=== PATIENT | female | born 1980 | race Caucasian/White ===

== ENCOUNTER 2017-04-22 22:44 | Emergency (ER) | payer MEDICAID ==
--- NOTE | 2017-04-22 23:28 | ED Physician Chart ---
ED Chief Complaint/HPI - Patient Information Date Seen:: 04/22/17 Time Seen:: 23:10 Chief Complaint:: chest pain History of Present Illness:: 4 hours ago the patient developed pleuritic right-sided chest pain right-sided chest pain. Patient's had no recent upper respiratory tract infection, fever or cough. Allergies:: Allergies Allergy/AdvReac Type Severity Reaction Status Date / Time No Known Allergies Allergy Verified 04/22/17 22:55 Vitals:: Vital Signs - 8 hr 04/22/17 22:45 Temp 98.1 F HR 79 RR 18 BP 136/98 O2 Sat % 98 Historian:: Patient, Family Member Review:: Nurse's Note Reviewed ED Review of Systems - Review of Systems General/Constitutional: No fever, No chills Skin: No skin lesions, No bruising Head: No headache Eyes: No loss of vision ENT: No earache, No sore throat Neck: No neck pain, No swelling, No thyromegaly, No stiffness Cardio Vascular: Chest pain Pulmonary: No SOB, No cough, No sputum, No wheezing GI: No nausea, No vomiting, No diarrhea G/U: No dysuria Musculoskeletal: No bone or joint pain, No back pain, No muscle pain Endocrine: No polyuria, No polydipsia Psychiatric: No prior psych history Hematopoietic: No bruising Allergic/Immuno: No urticaria Neurological: No syncope, No headache ED Past Medical History - Past Medical History Past Medical History: No significant medical hx Family History: None Social History: Non Smoker, No Alcohol Surgical History: None Psychiatricy History: None Medication: None Family Medical History - Family Member Mother History Unknown: Yes Ethnicity: Non- ED Physical Exam - Physical Examination General/Constitutional: Well-developed, well-nourished, Alert, No distress Head: Atraumatic Eyes: Lids, conjuctiva normal, PERRL Skin: Nl inspection, No rash, No skin lesions, No ecchymosis, Well hydrated ENMT: External ears, nose nl, Lips, teeth, gums nl Neck: No nuchal rigidity Respiratory: Nl effort/Exclusion, Clear to Auscultation, No Wheeze/Rhonchi/Rales Other Respiratory comments:: Clear symmetrical breath sounds Cardio Vascular: RRR, No murmur, gallop, rubs, NL S1 S2 GI: No tenderness/rebounding/guarding, No organomegaly, No hernia, Normal BS's, Nondistended, No mass/bruits, No McBurney tenderness : No CVA tenderness Extremities: Normal digits & nails Neuro/Psych: Alert/oriented, No focal deficits Misc: Normal back ED Assessment - Assessment General Assessment: Patient's pain improved after the albuterol breathing treatment ED Septic Shock - . Is Septic Shock (SBP<90, OR Lactate>4 mmol\L) present?: No - <6hrs of presentation: Vital Signs: Vital Signs - 8 hr 04/22/17 22:45 Temp 98.1 F HR 79 RR 18 BP 136/98 O2 Sat % 98 ED Reassessment (Disposition) - Reassessment Reassessment Condition:: Improved - Diagnosis Diagnosis:: Atypical chest pain - Aftercare/Follow up Instructions Aftercare/Follow-Up Instructions:: Refer to Discharge Instructions - Patient Disposition Discharge/Transfer:: Home Condition at Disposition:: Stable, Improved
[2017-04-22] MEDS ORDERED: Albuterol Nebulizer 2.5mg/3mL HHN STA (23:30)
[2017-04-22] MEDS ORDERED: Albuterol Nebulizer 2.5mg/3mL HHN ONE (23:41)
== END 2017-04-23 00:25 | disposition home or self-care (01) ==
LOC: ER 22:44
DX: R07.89 Other chest pain (principal)
CPT/HCPCS: 93005; 94640; J7613; Z7502

== ENCOUNTER 2017-11-08 20:26 | Emergency (ER) | payer MEDICAID ==
[2017-11-08] MEDS ORDERED: Acetaminophen 500 MG TAB PO ONE (21:01)
[2017-11-08] MEDS ORDERED: Acetaminophen 500 MG TAB ONE (21:05)
[2017-11-08 21:19] LABS: % EOSINOPHILS 1.6 % (0.0-5.0); % LYMPHOCYTES 44.6 % (20.0-50.0); % MONOCYTES 7.8 % (2.0-10.0); EOSINOPHILE ABSOLUTE 0.2 Th/cmm (0.1-0.4); HEMATOCRIT 39.8 % (41.0-60); LYMPHOCYTE ABSOLUTE 4.6 Th/cmm (1.5-3.0); MEAN CELL VOLUME 74.5 fl (81-100); MEAN CORPUSCULAR HEMOGLOBIN 24.4 pg (27.0-31.0); MEAN CORPUSCULAR HGB CONC 32.8 pg (28.0-36.0); MEAN PLATELET VOLUME 8.3 fl; MONOCYTE ABSOLUTE 0.8 Th/cmm (0.3-1.0); NEUTROPHILE ABSOLUTE 4.7 Th/cmm (1.8-8.0); PLATELET COUNT 363 Th/cmm (150-400); RED BLOOD COUNT 5.34 Mil/cmm (3.80-5.10); RED CELL DISTRIBUTION WIDTH 13.8 % (11.5-20.0); WHITE BLOOD COUNT 10.3 Th/cmm (4.8-10.8)
[2017-11-08 21:29] LABS: AMPHETAMINE URINE NEGATIVE (NEGATIVE); BARBITURATES URINE NEGATIVE (NEGATIVE); BENZODIAZEPINES QUAL URINE NEGATIVE (NEGATIVE); CANNABINOID THC NEGATIVE (NEGATIVE); COCAINE METABOLITE QUAL URINE NEGATIVE (NEGATIVE); METHADONE URINE NEGATIVE (NEGATIVE); METHAMPHETAMINES QUAL URINE NEGATIVE (NEGATIVE); OPIATES (MORPHINE) QUAL. URINE NEGATIVE (NEGATIVE); PHENCYCLIDINE (PCP) URINE NEGATIVE (NEGATIVE); TRICYCLICS (TCA) QUAL. URINE NEGATIVE (NEGATIVE)
[2017-11-08 21:34] LABS: ALB/GLOB RATIO 1.2 (1.0-1.8); ALBUMIN 3.7 gm/dL (3.7-5.3); ALKALINE PHOSPHATASE 36 U/L (34-104); ANION GAP 11.9 (7.0-16.0); BILIRUBIN,TOTAL 0.4 mg/dL (0.3-1.0); BUN - UREA NITROGEN 8 mg/dL (7-25); CALCIUM SERUM 9.5 mg/dL (8.6-10.3); CARBON DIOXIDE 25.5 mEq/L (21.0-31.0); CHLORIDE 105 mEq/L (98-107); CHOLESTEROL 198 mg/dL (<200); CREATININE - SERUM 0.7 mg/dL (0.6-1.2); GFR AFRICAN-AMERICAN > 60.0 ml/min (>90); GFR NON AFRICAN-AMERICAN > 60.0 ml/min; GLUCOSE 86 mg/dL (70-105); HDL -HIGH DENSITY LIPOPROTEIN 37 mg/dL (23-92); POTASSIUM SERUM 4.4 mEq/L (3.5-5.1); SGOT 13 U/L (13-39); SGPT/ALT 12 U/L (7-52); SODIUM SERUM 138 mEq/L (136-145); TOTAL PROTEIN,SERUM 6.9 gm/dL (6.0-8.3); TRIGLYCERIDES 136 mg/dL (<150)
--- NOTE | 2017-11-08 22:37 | ER Physician Documentation ---
DATE OF SERVICE: EMERGENCY ROOM EVALUATION AND TREATMENT HISTORY OF PRESENT ILLNESS: This is a 37-year-old female patient who said that around 4:00 when she got up to go to the bathroom, suddenly she had severe headache in the occipital part of the headache and the entire head was hurting, but more in the occipital part of the head and it continued the whole day. She took the doctor's appointment at 3:00. She took 800 mg of Motrin to kill the pain, but the pain did not go away. She went and saw the doctor. The doctor gave her 5 mg of lisinopril and the patient was told to come to the Emergency Room. The patient did not take the medication. She came to the hospital. The patient's past medical history is negative for hypertension. She denied taking any narcotics weeds, marijuana, or any other drugs. Her drug screen was ordered to see if there is anything positive in the drug. Urine test has been ordered, I think it was negative, if not we can look at it again to see. The patient's blood pressure ever since that 3-4 times has been taken. It is always above around and blood pressure is 145 is the lowest systolic blood pressure. The patient never had hypertension in her life according to her. Her parents never had hypertension. She does not know much about the parents, her mother and father, because they live in [place] and she lives here. She did not take any medication else other than 800 mg of Motrin. Review of current illnesses is that the patient got sudden headache and she did not blow up any balloon or did not have any head injury. There is no evidence of any meningeal signs, Kernig's signs or Brudzinski sign. There are no meningeal signs. Straight leg raising test is negative and there is no nuchal rigidity. There is no evidence of any tumor type of thing. There is no seizure. There are no tremors. PAST MEDICAL HISTORY: Benign and negative. PERSONAL HISTORY: , 3 children. ALLERGIES: None known. REVIEW OF SYSTEMS: GENERAL: Twelve-point review of system, she is awake, alert. CONSTITUTIONAL: Negative. No fever, no chills, no rigors. Does not take any drugs. CARDIAC: No history of any chest pain. No history of any myocardial infarction, rheumatic fever, valvular heart disease, pericardial disease, cardiomyopathy. LUNGS GAO: Clear. She does not have any pneumonia or TB pulmonary embolism, COPD, emphysema, bronchitis. GI GAO: No history of diarrhea, constipation, or vomiting. ENDOCRINE GAO: No history of diabetes mellitus, hypo or hyperthyroidism. Bones and joints, no apparent complaints. A 12-point review of systems otherwise is benign and negative. She does not take any medication. Today, only for the first time she took 800 mg of Motrin and it surprising that for the first time without knowing about the medications she is taking 800 mg of Motrin that suggests that it is very possible that she might have taken Motrin or some other drugs that might thinned up the blood or antiplatelet medications and might have bled in the brain, but she does not look like she is a severe sick patient. She looks calm. She looks comfortable. PHYSICAL EXAMINATION: GENERAL: The patient appears to be awake, alert, oriented. General examination is otherwise benign and negative. Meningeal signs as negative. No edema, no cyanosis, no petechia, no ecchymosis. CHEST: Clear. Trachea being central. Fairly good air entry in both lungs. HEART: Reveals normal heart sounds. Soft fourth heart sound. Second heart sound is physiologically split. Third heart sound is absent. Fourth heart sound is soft, distant, benign, negative. No abnormal murmur, no abnormal systolic, no abnormal diastolic, no evidence of any pericardial rub. No evidence of any systolic murmur of aortic stenosis. No evidence of any fevers, chills or rigors. No evidence of any sepsis or septicemia, etc. present. Urine appeared to be clear, but it sent for urine examinations. Urine for drug screen has been ordered by me. The patient is ordered to get lisinopril 10 mg, metoprolol 50 mg, Zofran 4 mg by mouth and Tylenol 1 gram by mouth right now. The patient surgical gao had 3 surgeries, 3 C-sections and she does not know why 3 C-sections were done. She was told to take 3 , she went ahead and had 3 babies with 3 C-sections, 2 girls and one son. CLINICAL IMPRESSION: The patient had sudden onset of headache. She does not look like having ruptured aneurysm, but one thing we need to rule out is ruptured mendes aneurysm. I do not think so, but we will rule it out. Intracranial hemorrhage and any other possibilities, we will rule it out. So, CT scan will be done to rule out if there is anything suddenly happen to her. It is possible that she may not be telling us the truth that she is taking Motrin on a regular basis and that can cause a bleeding problem and cause platelet dysfunction and may cause intracranial bleeding also; GI bleeding also is a very possibility. Doctor gave her 5 mg of lisinopril that they did not take it. The patient's pain is 10/10, but looking at her, it does not even look like 3/10 because she does not have that kind of pain. Vital signs taken by the triage nurse shows temperature to be 98.2, pulse of 82, respirations 18, blood pressure 141/98, then it became 145/95 and then 143/90 or so in that level, 99% oxygen saturation, height of 154 cm, weight 162 pounds. She is mildly overweight. Last menstrual period is going on now. x 3 and she does not take any drugs or other medications. So, the plan is to get a CT scan of the brain done and it is possible that the patient may be hypertensive for a long time, but she says she has never been hypertensive, so I am not sure what is the cause. It could be some things that she ate or some injury to the head or it is just a simple migraine to start with can give rise to this kind of symptoms. So as long as the CT scan is normal, we can just give her Tylenol and Motrin etc. as needed. JOB# [id number]
--- NOTE | 2017-11-08 22:47 | Transfer Summary ---
DATE OF TRANSFER: 11/08/2017 ADDENDUM AND FINAL DISCHARGE REPORT Full code patient. A 37-year-old female. LABORATORY DATA: WBC 10.3, hemoglobin 13, hematocrit 39.8, differential is normal. Electrolytes are all within normal limits. BUN is 8, creatinine is 0.7 and glucose is 86. The patient's LDL level is very high at 147. Ideally it should be less than 90 and less than 70 is preferable and she should not eat too much of red meat and all kinds of pork and beef she is eating. She should cut back on the portions, cut back on high cholesterol and fat containing food and advice from a dietitian may be more helpful to her. The patient's CT scan has come to be negative. She finally acknowledged that she is taking for past 3 years, nonsteroidal anti-inflammatory medication. It is possible that she may be hypertensive for the past 3 years and the patient is discharged today with Lipitor 20 mg at bedtime and she needs to take Lopressor 50 mg p.o. morning. She should not take any nonsteroidal anti-inflammatory drugs like Aleve, Motrin, Toradol, Ultram or any other nonsteroidal anti-inflammatory drugs like diclofenac etc. The patient should cut back on portions of the cholesterol or cholesterol containing compounds. All instructions were given to the patient. FINAL DIAGNOSES: 1. Headache. 2. Hyperlipidemia. 3. The patient has may be mild gastritis secondary to using Motrin and she has been using it for the past 3 years. 4. Slightly overweight situation and all these things advised for this were all given to the patient and the patient will not take Motrin and not use any other drugs. JOB# [id number]
--- NOTE | 2017-11-09 07:27 | Diagnostic Imaging Report ---
CT scan of the brain without contrast History: Headache Total DLP equals 497 CTDI equals 30.3 Axial sections were obtained from the base of the skull to the vertex. There is a normal ventricular system size. No focal parenchymal lesions are seen. No evidence of any mass effect or shift of midline structures. No extra-axial masses or abnormal fluid collections. Impression: Negative examination
== END 2017-11-08 22:05 | disposition home or self-care (01) ==
LOC: ER 20:26
DX: R51 Headache (principal)
CPT/HCPCS: 99285; 70450; 36415; 80307; 86141; 85025; 81025; 80053; 80061; Q0162; Z7610

== ENCOUNTER 2018-12-20 22:27 | Emergency (ER) | payer MEDICAID ==
--- NOTE | 2018-12-20 22:49 | ED Physician Chart ---
ED Chief Complaint/HPI - Patient Information Date Seen:: 12/20/18 Time Seen:: 22:44 Chief Complaint:: Left ear pain History of Present Illness:: 38 yo female had left ear pain, left facial and left upper neck pain for 1 week. Pt noticed some blood in the left ear last week. Pt denied hearing loss or fever. Pt saw her PMD who prescribed Keflex 500 mg q6h for 7 days. Pt finished the antibiotics and still had significant left ear pain. Pt also felt headache and dizziness. Allergies:: Allergies Allergy/AdvReac Type Severity Reaction Status Date / Time No Known Allergies Allergy Verified 12/20/18 22:36 Vitals:: Vital Signs - 8 hr 12/20/18 22:30 Temp 99.0 F HR 77 RR 18 BP 127/83 O2 Sat % 99 ED Review of Systems - Review of Systems General/Constitutional: No fever, No chills Skin: No rash Head: Headache Eyes: No pain ENT: No nasal drainage Neck: Neck pain Cardio Vascular: No chest pain Pulmonary: No SOB GI: No nausea, No vomiting G/U: No dysuria Musculoskeletal: No bone or joint pain Neurological: No focal symptoms ED Past Medical History - Past Medical History Past Medical History: No significant medical hx Social History: Non Smoker, No Alcohol, No Drug Use Surgical History: (x 3, ) Family Medical History - Family Member Mother History Unknown: Yes Ethnicity: Non- ED Assessment - Assessment General Assessment: Otitis media, failed antibiotics, Keflex Assessment/Comments:: Rocephin 1g IM x 1 D/c home Augmentin 875/125 mg PO q12h x 10 days ED Septic Shock - . Is Septic Shock (SBP<90, OR Lactate>4 mmol\L) present?: No - <6hrs of presentation: Vital Signs: Vital Signs - 8 hr 12/20/18 22:30 Temp 99.0 F HR 77 RR 18 BP 127/83 O2 Sat % 99 ED Reassessment (Disposition) - Reassessment Reassessment Condition:: Improved - Aftercare/Follow up Instructions Notes:: F/u PCP and ENT, or return to ER if symptoms worsen. Medication Prescribed:: Augmentin 875/125 mg PO bid x 10 days - Patient Disposition Discharge/Transfer:: Home
== END 2018-12-20 23:39 | disposition home or self-care (01) ==
LOC: ER 22:27
DX: H66.92 Otitis media, unspecified, left ear (principal); M54.2 Cervicalgia; Z98.890 Other specified postprocedural states
CPT/HCPCS: 99283; 96372; J0696; Z7502

== ENCOUNTER 2019-03-21 22:31 | Emergency (ER) | payer MEDICAID ==
--- NOTE | 2019-03-21 22:51 | ED Physician Chart ---
ED Chief Complaint/HPI - Patient Information Date Seen:: 03/21/19 Time Seen:: 22:50 Chief Complaint:: Abdominal pain History of Present Illness:: 38 yo female developed sudden onset of abdominal pain 3 hours ago after eating cheese sandwich. The pain was located in the epigastric region radiating to the back, constant, 04/20. Pt also noticed rashes at upper chest. Pt had a large emesis of food content in the ER. Allergies:: Allergies Allergy/AdvReac Type Severity Reaction Status Date / Time No Known Allergies Allergy Verified 12/20/18 22:36 Vitals:: Vital Signs - 8 hr 03/21/19 22:42 Temp 98.6 F HR 95 RR 17 BP 169/111 O2 Sat % 100 ED Review of Systems - Review of Systems General/Constitutional: No fever, No chills Skin: No rash Head: Headache Eyes: No pain ENT: No nasal drainage Neck: No neck pain Cardio Vascular: No chest pain Pulmonary: No SOB GI: Nausea, Vomiting, Pain Musculoskeletal: No bone or joint pain Psychiatric: No prior psych history Neurological: No focal symptoms ED Past Medical History - Past Medical History Past Medical History: HTN Social History: Non Smoker, No Alcohol, No Drug Use Surgical History: (x 3) Family Medical History - Family Member Mother History Unknown: Yes Ethnicity: Non- ED Physical Exam - Physical Examination General/Constitutional: Awake, Alert Head: Atraumatic Eyes: PERRL, EOMI Other Skin comments:: Rashes in the upper chest ENMT: Nasal exam nl Neck: No nuchal rigidity Respiratory: No Wheeze/Rhonchi/Rales Cardio Vascular: RRR, No murmur, gallop, rubs, NL S1 S2 Other GI comments:: Epigastric and RUQ tenderness Extremities: normal strength in all extremities Neuro/Psych: Alert/oriented, No focal deficits ED Labs/Radiology/EKG Results - Lab Results Results: Laboratory Last Values WBC 10.9 Th/cmm (4.8-10.8) H 03/21/19 23:10 RBC 5.51 Mil/cmm (3.80-5.10) H 03/21/19 23:10 Hgb 14.2 gm/dL (12-16) 03/21/19 23:10 Hct 43.8 % (41.0-60) 03/21/19 23:10 MCV 79.4 fl (81-100) L 03/21/19 23:10 MCH 25.8 pg (27.0-31.0) L 03/21/19 23:10 MCHC Differential 32.4 pg (28.0-36.0) 03/21/19 23:10 RDW 14.0 % (11.5-20.0) 03/21/19 23:10 Plt Count 333 Th/cmm (150-400) 03/21/19 23:10 MPV 8.3 fl 03/21/19 23:10 Neutrophils % 35.2 % (40.0-80.0) L 03/21/19 23:10 Lymphocytes % 54.3 % (20.0-50.0) H 03/21/19 23:10 Monocytes % 7.9 % (2.0-10.0) 03/21/19 23:10 Eosinophils % 2.6 % (0.0-5.0) 03/21/19 23:10 Basophils % 0.0 % (0.0-2.0) 03/21/19 23:10 PT 9.9 SECONDS (9.5-11.5) 03/21/19 23:10 INR 0.95 (0.5-1.4) 03/21/19 23:10 PTT (Actin FS) 26.0 SECONDS (26.0-38.0) 03/21/19 23:10 Sodium 137 mEq/L (136-145) 03/21/19 23:10 Potassium 4.3 mEq/L (3.5-5.1) 03/21/19 23:10 Chloride 102 mEq/L (98-107) 03/21/19 23:10 Carbon Dioxide 27.6 mEq/L (21.0-31.0) 03/21/19 23:10 Anion Gap 11.7 (7.0-16.0) 03/21/19 23:10 BUN 17 mg/dL (7-25) 03/21/19 23:10 Creatinine 0.7 mg/dL (0.6-1.2) 03/21/19 23:10 Est GFR ( Amer) > 60.0 ml/min (>90) 03/21/19 23:10 Est GFR (Non-Af Amer) > 60.0 ml/min 03/21/19 23:10 BUN/Creatinine Ratio 24.3 03/21/19 23:10 Glucose 93 mg/dL (70-105) 03/21/19 23:10 Calcium 9.7 mg/dL (8.6-10.3) 03/21/19 23:10 Total Bilirubin 0.4 mg/dL (0.3-1.0) 03/21/19 23:10 AST 13 U/L (13-39) 03/21/19 23:10 ALT 11 U/L (7-52) 03/21/19 23:10 Alkaline Phosphatase 50 U/L (34-104) 03/21/19 23:10 Total Protein 7.3 gm/dL (6.0-8.3) 03/21/19 23:10 Albumin 4.3 gm/dL (3.7-5.3) 03/21/19 23:10 Globulin 3.0 gm/dL 03/21/19 23:10 Albumin/Globulin Ratio 1.4 (1.0-1.8) 03/21/19 23:10 Amylase 87 U/L (29-103) 03/21/19 23:10 Lipase 61 U/L (11-82) 03/21/19 23:10 Urine Source MIDSTREAM 03/22/19 00:10 Urine Color YELLOW 03/22/19 00:10 Urine Clarity HAZY (CLEAR) 03/22/19 00:10 Urine pH 6.5 (4.6 - 8.0) 03/22/19 00:10 Ur Specific [place] 1.020 (1.005-1.030) 03/22/19 00:10 Urine Protein TRACE mg/dL (NEGATIVE) 03/22/19 00:10 Urine Glucose (UA) NEGATIVE mg/dL (NEGATIVE) 03/22/19 00:10 Urine Ketones NEGATIVE mg/dL (NEGATIVE) 03/22/19 00:10 Urine Blood LARGE (NEGATIVE) H 03/22/19 00:10 Urine Nitrate NEGATIVE (NEGATIVE) 03/22/19 00:10 Urine Bilirubin NEGATIVE (NEGATIVE) 03/22/19 00:10 Urine Urobilinogen 0.2 E.U./dL (0.2 - 1.0) 03/22/19 00:10 Ur Leukocyte Esterase LARGE (NEGATIVE) H 03/22/19 00:10 Urine RBC 5-10 /hpf (0-5) H 03/22/19 00:10 Urine WBC 10-25 /hpf (0-5) H 03/22/19 00:10 Ur Epithelial Cells RARE /lpf (FEW) 03/22/19 00:10 Urine Bacteria OCCASIONAL /hpf (NONE SEEN) 03/22/19 00:10 Urine Test NEGATIVE 03/22/19 00:10 - Radiology Results Results: CT abdomen/pelvis: Gall stones. One calcified stone near the gallbladder neck or cystic duct. Mild gallbladder wall thickening and minimal surrounding stranding. Correlate for cholecystitis. Small hiatal hernia. Markedly enlarged lower uterine segment/cervical region/mass up to 7cm. ED Assessment - Assessment General Assessment: Acute abdominal pain Acute cholecystitis Urinary tract infection Leukocytosis Small hiatal hernia Uterine mass Assessment/Comments:: CBC, CMP, lipase, amylase, PT/PTT, UA, urine hCG CT abdomen/pelvis wo contrast Pantoprazole IV Zofran IV Morphine IV (pt refused) Tylenol PO Zosyn IV NS 1L IV bolus ED Septic Shock - . Is Septic Shock (SBP<90, OR Lactate>4 mmol\L) present?: No - <6hrs of presentation: Vital Signs: Vital Signs - 8 hr 03/21/19 22:42 Temp 98.6 F HR 95 RR 17 BP 169/111 O2 Sat % 100 ED Reassessment (Disposition) - Reassessment Reassessment:: Pt left AMA without waiting for CT abdomen/pelvis result Reassessment Condition:: Improved - Patient Disposition Discharge/Transfer:: Against Medical Advice
[2019-03-21 23:20] LABS: % EOSINOPHILS 2.6 % (0.0-5.0); % LYMPHOCYTES 54.3 % (20.0-50.0); % MONOCYTES 7.9 % (2.0-10.0); % NEUTROPHILS 35.2 % (40.0-80.0); EOSINOPHILE ABSOLUTE 0.3 Th/cmm (0.1-0.4); HEMATOCRIT 43.8 % (41.0-60); HEMOGLOBIN 14.2 gm/dL (12-16); LYMPHOCYTE ABSOLUTE 5.9 Th/cmm (1.5-3.0); MEAN CELL VOLUME 79.4 fl (81-100); MEAN CORPUSCULAR HEMOGLOBIN 25.8 pg (27.0-31.0); MEAN CORPUSCULAR HGB CONC 32.4 pg (28.0-36.0); MONOCYTE ABSOLUTE 0.9 Th/cmm (0.3-1.0); NEUTROPHILE ABSOLUTE 3.8 Th/cmm (1.8-8.0); PLATELET COUNT 333 Th/cmm (150-400); RED BLOOD COUNT 5.51 Mil/cmm (3.80-5.10); WHITE BLOOD COUNT 10.9 Th/cmm (4.8-10.8)
[2019-03-21 23:29] LABS: INR 0.95 (0.5-1.4)
[2019-03-21 23:34] LABS: ALB/GLOB RATIO 1.4 (1.0-1.8); ALBUMIN 4.3 gm/dL (3.7-5.3); ALKALINE PHOSPHATASE 50 U/L (34-104); AMYLASE SERUM 87 U/L (29-103); ANION GAP 11.7 (7.0-16.0); BILIRUBIN,TOTAL 0.4 mg/dL (0.3-1.0); BUN - UREA NITROGEN 17 mg/dL (7-25); CALCIUM SERUM 9.7 mg/dL (8.6-10.3); CARBON DIOXIDE 27.6 mEq/L (21.0-31.0); CHLORIDE 102 mEq/L (98-107); CREATININE - SERUM 0.7 mg/dL (0.6-1.2); GFR AFRICAN-AMERICAN > 60.0 ml/min (>90); GFR NON AFRICAN-AMERICAN > 60.0 ml/min; GLUCOSE 93 mg/dL (70-105); LIPASE 61 U/L (11-82); POTASSIUM SERUM 4.3 mEq/L (3.5-5.1); SGOT 13 U/L (13-39); SGPT/ALT 11 U/L (7-52); SODIUM SERUM 137 mEq/L (136-145); TOTAL PROTEIN,SERUM 7.3 gm/dL (6.0-8.3)
[2019-03-21] MEDS ORDERED: Morphine Sulfate 2 mg/mL 1mL Syr ONE (23:37)
[2019-03-21] MEDS ORDERED: Morphine Sulfate 2 mg/mL 1mL Syr IV STA (23:40)
[2019-03-21] MEDS ORDERED: Sodium Chloride 0.9% 1,000 ML IV ONE (23:50)
[2019-03-21] MEDS ORDERED: Piperacillin Sodium/Tazobact 3.375 gm Vial IV ONE (23:59)
[2019-03-22 00:33] LABS: URINE SOURCE MIDSTREAM
[2019-03-22 00:34] LABS: URINE BILIRUBIN NEGATIVE (NEGATIVE); URINE BLOOD LARGE (NEGATIVE); URINE GLUCOSE (UA) NEGATIVE (NEGATIVE); URINE KETONE NEGATIVE (NEGATIVE); URINE LEUKOCYTE ESTERASE LARGE (NEGATIVE); URINE MICROSCOPIC INDICATED? YES; URINE NITRATE NEGATIVE (NEGATIVE); URINE PH 6.5 (4.6 - 8.0); URINE PROTEIN TRACE mg/dL (NEGATIVE); URINE UROBILINOGEN 0.2 E.U./dL (0.2 - 1.0)
[2019-03-22 00:38] LABS: URINE COLOR YELLOW
[2019-03-22 00:46] LABS: URINE CLARITY HAZY (CLEAR)
[2019-03-22 01:01] LABS: URINE EPITHELIAL CELLS RARE /lpf (FEW)
[2019-03-22 01:02] LABS: URINE BACTERIA OCCASIONAL /hpf (NONE SEEN)
--- NOTE | 2019-03-22 09:36 | Diagnostic Imaging Report ---
CT abdomen and pelvis without intravenous contrast Indication: Abdominal pain Comparison: None, Technique: Axial images were obtained from the lung bases to the bilateral proximal femurs without IV contrast. Coronal reconstructions were made. total DLP: 465, CTDI9.7 FINDINGS: Hypoventilatory and atelectatic changes of the lung bases are noted. Evaluation of solid organs is limited due to lack of IV contrast. No evidence of focal hepatic lesions. Distended gallbladder is noted with gallstones. There is a 5 mm stone the region near the gallbladder neck or less likely cystic duct region. No focal splenic lesions. 1mm microcalcification the body the pancreas is noted likely due to old inflammatory process. No focal Adrenal lesions. No hydronephrosis or nephrolithiasis. Minimal bladder wall thickening is noted. There is a large lower uterine/cervical fairly homogeneous mass measuring 8.6 and is transverse by 6.8 cm AP by 7 cm craniocaudal. Mild localized mass effect is noted. Moderate stool is seen throughout the colon with generalized gas-filled loops of bowel. Small hiatal hernia is noted. No free fluid or free air. Mild degenerative changes spine and pelvis are noted. IMPRESSION: Large mass along the lower uterine or cervix region. This may represent a large fibroid, however, other gynecologic masses cannot be excluded. Recommend clinical correlation further assessment pelvic ultrasound. Cholelithiasis with distended gallbladder. There is a small stone within the neck or less likely cystic duct region. Recommend follow-up with ultrasound. Minimal urinary bladder wall thickening. Inflammatory process cannot be excluded. Small hiatal hernia.
== END 2019-03-22 02:58 | disposition left against medical advice (07) ==
LOC: ER 22:31
DX: N39.0 Urinary tract infection, site not specified (principal); K81.0 Acute cholecystitis; N85.8 Other specified noninflammatory disorders of uterus; D72.829 Elevated white blood cell count, unspecified; K44.9 Diaphragmatic hernia without obstruction or gangrene; I10 Essential (primary) hypertension; Z98.890 Other specified postprocedural states
CPT/HCPCS: 36415-UA; 80053-TC; 81001-TC; 81025-TC; 82150-TC; 83690-TC; 85025-TC; 85610-TC; 87086-90; 93005; 96375; C9113; J2270; J2405; J2543; J7030; Z7610